=== PATIENT | male | born 1960 | race Caucasian/White ===

== ENCOUNTER 2018-04-14 16:16 | Emergency (ER) | payer OTHER ==
[2018-04-14 16:20] VITALS: BP 131/103; PULSE 72; BMI 17.9
[2018-04-14] MEDS ORDERED: ACETAMINOPHEN 325 MG TABLET (FP) PO ONE (16:46)
--- NOTE | 2018-04-14 17:11 | PDOC ---
History of Present Illness - General Chief Complaint: Injury Stated Complaint: FALL Time Seen by Provider: 04/14/18 16:24 History Source: Patient (s/p fall today on the side walk, sustained laceration above L eye brow and below L eye) Exam Limitations: No Limitations - History of Present Illness Pain Location: denies: head Past History - Travel Traveled outside of the country in the last 30 days: No Close contact w/someone who was outside of country & ill: No - Past Medical History Allergies/Adverse Reactions: Allergies Allergy/AdvReac Type Severity Reaction Status Date / Time hydromorphone [From Dilaudid] Allergy Mild BP DROPS Verified 04/14/18 17:14 diledid Allergy Mild BP DROPS Uncoded 04/14/18 17:13 Home Medications: Ambulatory Orders Fluconazole [Diflucan] 150 mg PO WEEKLY 04/14/18 Ibuprofen 800 mg PO ACDIN 7 Days #21 tablet 04/14/18 Cardiac Disorders: Yes (MVP) COPD: No GI Disorders: Yes (diverticulitis) - Suicide/Smoking/Psychosocial Hx Smoking History: Never smoked Review of Systems - Review of Systems Is the patient limited Irish proficient: No Constitutional: No: Chills, Fever Respiratory: No: Shortness of Breath Cardiac (ROS): No: Chest Pain, Palpitations Neurological: No: Headache, Unsteady Gait, Ataxia (+ abrasion to cheek, wrist and knee), Dizziness *Physical Exam - Vital Signs Last Vital Signs Temp Pulse Resp BP Pulse Ox 72 18 131/103 H 99 04/14/18 16:17 04/14/18 16:17 04/14/18 16:17 04/14/18 16:17 - Physical Exam General Appearance: Yes: Nourished HEENT: positive: EOMI, SARAN, TMs Normal Neck: positive: Supple Respiratory/Chest: positive: Lungs Clear, Normal Breath Sounds Cardiovascular: positive: Regular Rhythm, Regular Rate, S1, S2 Extremity: positive: Normal Capillary Refill, Normal Inspection, Normal Range of Motion Integumentary: positive: Ecchymosis (nasal bridge, 1.5cm laceration above left brow, deep lac with tissue loss in maxillary about 0.5cm ), Bruising (in b/l hands and palm, L knee, nasolabial region) Neurologic: 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: 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 NML intact, Fully Oriented, Alert (1cm superfical laceration above L eye, 1cm laceration below eye--very deep) Moderate Sedation - Procedure Monitoring Vital Signs: Procedure Monitoring Vital Signs Temperature Pulse Rate 72 04/14/18 16:17 Respiratory Rate 18 04/14/18 16:17 Blood Pressure 131/103 H 04/14/18 16:17 O2 Sat by Pulse Oximetry (%) 99 04/14/18 16:17 ED Treatment Course - RADIOLOGY Radiology Studies Ordered: Category Date Time Status FACIAL BONES CT W/O CONTRAST [CT] Stat CT Scan 04/14/18 16:[address] WITHOUT CONTRAST [CT] Stat CT Scan 04/14/18 16:59 Ordered Medical Decision Making - Medical Decision Making 04/14/18 17:12 57-year-old male with no prior medical history presents with laceration to the left eyebrow and below left eye sustaining some abrasions well to his left knee and left wrist while running for the train at 3pm today, He fell on his face but denies loss of consciousness. He is unsure if he hit his head Exam consistent with laceration supra and infraorbital region, mildly tenderness to maxillary bone on the left head and facial CT ordered pt requesting plastics surgery for closure tetanus updated as pt was unsure of last one 6:55pm,. Dr Miller Plastic arrived for lac closure Head and facial CT neg for fx 04/14/18 19:56 04/15/18 09:03 *DC/Admit/Observation/Transfer Diagnosis at time of Disposition: Laceration, Fall - Discharge Dispostion Disposition: HOME Condition at time of disposition: Good Decision to Admit order: No - Prescriptions Prescriptions: Ibuprofen 800 mg PO ACDIN 7 Days #21 tablet - Referrals Referrals: Clayton Rain [Primary Care Provider] - Guillaume Miller MD [Staff Physician] - - Patient Instructions Printed Discharge Instructions: DI for Laceration Repair, How to Prevent Falls Additional Instructions: Please follow up with Dr. Miller Plastic Surgeon for suture removal and follow up. - Post Discharge Activity
[2018-04-14] MEDS ORDERED: DIPHTH,PERTUSS(ACELL),TET 0.5 ML DISP.SYRIN IM ONE ×2 (17:15→17:18)
[2018-04-14] MEDS ORDERED: BACITRACIN 15 GM TUBE TOPICAL OINTMENT ONE (17:17)
[2018-04-14] MEDS ORDERED: LIDOCAINE 1%/EPI 1:100000 (20 ML MULTI DOSE VIAL) IJ ONE (19:05)
[2018-04-14] MEDS ORDERED: LIDOCAINE 1%/EPI 1:100000 (20 ML MULTI DOSE VIAL) ONE (19:08)
--- NOTE | 2018-04-14 20:07 | CONSULT ---
Consult Consult Specialty:: Plastic Surgery - History of Present Illness Chief Complaint: Multiple Open Wound Left side of face- Above Left Lateral Brow , Left Malar region - Smoking History Smoking history: Never smoked Home Medications - Allergies Allergies/Adverse Reactions: Allergies Allergy/AdvReac Type Severity Reaction Status Date / Time hydromorphone [From Dilaudid] Allergy Mild BP DROPS Verified 04/14/18 17:14 diledid Allergy Mild BP DROPS Uncoded 04/14/18 17:13 - Home Medications Home Medications: Ambulatory Orders Fluconazole [Diflucan] 150 mg PO WEEKLY 04/14/18 Physical Exam Vital Signs: Vital Signs Temperature Pulse Rate 72 04/14/18 16:17 Respiratory Rate 18 04/14/18 16:17 Blood Pressure 131/103 H 04/14/18 16:17 O2 Sat by Pulse Oximetry (%) 99 04/14/18 16:17 Assessment/Plan 57 year old male who fell while running. Multiple facial abrasions and lacerations including tissue loss. Main areas affected include Above Left Later Brow and over Left Malar eminence. Brow laceration stellate with multiple areas of non-viable tissue. Malar wound with modest loss of tissue. Closes area about 1.5cm from lid margin. Brow laceration debrided of non-viable tissue. Deep tissues closed with 5-0 vicryl, skin loosely approximated with 6-0 nylon. Malar wound debrided. Deep tissues closed with 5-0 vicryl. Skin with large abrasion that was left open. Dressed with Bacitracin. Return to office in 5 days. Given instructions for post-op care.
[2018-04-15] MEDS ORDERED: BACITRACIN 15 GM TUBE TOPICAL OINTMENT TP SCH (10:00)
== END 2018-04-14 20:23 | disposition home or self-care (01) ==
LOC: JERFT 16:16
PROC: 0JQ10ZZ Repair Face Subcutaneous Tissue and Fascia, Open Approach (ICD-10-PCS; principal; 2018-04-14)
DX: S01.112A Laceration without foreign body of left eyelid and periocular area, initial encounter (principal); S00.81XA Abrasion of other part of head, initial encounter; S80.212A Abrasion, left knee, initial encounter; S60.812A Abrasion of left wrist, initial encounter; W00.2XXA Other fall from one level to another due to ice and snow, initial encounter; Y93.02 Activity, running; Y92.480 Sidewalk as the place of occurrence of the external cause; Y99.8 Other external cause status
CPT/HCPCS: 70450-TC; 70486-TC; 90715; 99282-25